=== PATIENT | female | born 1955 | race Native Hawaiian/Other Pacific Islander ===

== ENCOUNTER 2020-08-31 19:18 | Emergency (ER) | payer OTHER ==
[~2020-08-31] VITALS: Ht 165.1 cm; Wt 81.6 kg
[2020-08-31 20:21] VITALS: BP 148/88; TEMP 98.4
== END 2020-08-31 20:21 | disposition home or self-care (01) ==
LOC: ED 19:18
DX: M79.2 Neuralgia and neuritis, unspecified (principal)
CPT/HCPCS: 96372; 99283; J1885